=== PATIENT | female | born 1940 | race Caucasian/White ===

== ENCOUNTER 2017-04-13 11:42 | Emergency (ER) | payer MEDICARE, OTHER | END 2017-04-13 12:09 | disposition home or self-care (01) | LOC: ER 11:42 | DX: J02.9 Acute pharyngitis, unspecified (principal); B37.0 Candidal stomatitis; H92.01 Otalgia, right ear; Z88.8 Allergy status to other drugs, medicaments and biological substances; Z79.899 Other long term (current) drug therapy; Z79.891 Long term (current) use of opiate analgesic; Z79.01 Long term (current) use of anticoagulants | CPT/HCPCS: 87070; 87880; 99282; 99283 ==